=== PATIENT | female | born 1965 | race Hispanic/Latino ===

== ENCOUNTER 2025-04-30 12:47 | Emergency (ER) | payer OTHER, SELFPAY ==
--- NOTE | ~2025-04-30 | CT_ITS ---
History: Facial droop PROCEDURE: CT head without contrast. COMPARISON: None TECHNIQUE: Axial imaging of the head performed from the skull base to the vertex without IV contrast. Sagittal a nd coronal reformations obtained. DLP: 605 mGy-cm FINDINGS: The ventricles are normal in size, shape and position. There is no mass, mass effect or midline shift. There is no abnormal extra-axial fluid collection or intracranial hemorrhage. Visualized paranasal sinuses are clear. The mastoid air cells are well aerated. No acute displaced fractures within the overlying cranium. Impression: No acute intracranial hemorrhage or suspicious mass effect. Reviewed, dictated and finalized at location A. Impression: No acute intracranial hemorrhage or suspicious mass effect.
--- NOTE | ~2025-04-30 | XR_ITS ---
CHEST RADIOGRAPH CLINICAL HISTORY: Facial droop, left side . COMPARISON: None available TECHNIQUE: Single portable view of the chest. FINDINGS The cardiomediastinal silhouette is unremarkable. The lungs are clear. IMPRESSION: No focal infiltrate or effusion. Reviewed, dictated and finalized at location A.
[2025-04-30 12:54] VITALS: BP 152/107; PULSE 87; RESP 18; TEMP 37.1; O2SAT 97
[2025-04-30 13:05] VITALS: O2SAT 98
--- NOTE | 2025-04-30 13:16 | ECG_ITS ---
Test Date: 2025-04-30 13:39:24 Measurements Intervals Eleva Rate: 81 P: 43 FL: 168 QRS: 3 QRSD: 78 T: 49 QT: 358 QTc: 418 Interpretive Statements SINUS RHYTHM VOLTAGE CRITERIA FOR LVH NONSPECIFIC T-WAVE ABNORMALITY- ANTERIOR LEADS BASELINE ARTIFACT- I, II, AVR, AVL, AVF BORDERLINE ECG No previous ECG available for comparison Electronically Signed On 04-30-2025 13:45:56 CDT by Roberto Cooper D.O.
--- NOTE | 2025-04-30 13:22 | ED.NEUROSD ---
HPI - Neuro Symptoms/Deficit General Chief Complaint: Suspected CVA Stated Complaint: left facial drooping started last night Time Seen by Provider: 04/30/25 13:07 History of Present Illness HPI Narrative: 59-year-old female primarily [place]er-speaking requiring interpretive services. Patient presents to the emergency department with left-sided facial droop and difficulty closing her left eye. Patient states the symptoms started 4:00 p.m. yesterday. Previous to this she was not having any symptoms at all. Endorses some sensation loss in the left side of her face including the forehead, cheek and jaw area. Notices that she cannot smile very well and notices that she has some tearing in her left eye. No hearing loss but states that she gets some fullness sensation left ear. No facial trauma or injury. No rash or lesions. His a history of hypertension diabetes but no history of stroke. She was otherwise in her normal state of health. Denies any neck pain, facial pain or headache. No weakness or sensory deficits in the arms or legs. No difficulty ambulating. Related Data Allergies Allergy/AdvReac Type Severity Reaction Status Date / Time No Known Allergies Allergy Verified 04/30/25 13:01 Review of Systems Review of Systems: As reviewed above in HPI Exam Narrative: GENERAL: [Well-appearing, well-nourished, and in no acute distress.] HEAD: [Normocephalic, atraumatic.] EYES: [PERRLA and EOMI.] ENT: Nares clear, no rhinorrhea or epistaxis. Mucous membranes moist. NECK: Supple. CHEST: [Clear to auscultation. No respiratory distress.] HEART: [Regular rate and rhythm]. No murmur heard. [Normal peripheral pulses.] ABDOMEN: [Soft, nondistended], [nontender], [No rigidity or guarding] EXTREMITIES: Normal range of motion. [No edema.] SKIN: Warm, dry, no rash. NEURO: Left-sided facial asymmetry not sparing the forehead, inability to lift the left corner of her left mouth or raise the eyebrows or tarsal muscle in the left side, sensation decreased over the V1 through V3 distribution of the left face. No ataxia in the arms, no visual deficits, no hearing loss. No drift in the arms or legs. Symptoms consistent with Perkins's palsy PSYCH: [Normal mood and affect.] Course Vital Signs Vital signs: Vital Signs Temperature 37.1 C 04/30/25 12:54 Pulse Rate 87 04/30/25 12:54 Respiratory Rate 18 04/30/25 12:54 Blood Pressure 152/107 H 04/30/25 12:54 Pulse Oximetry 97 04/30/25 12:54 Oxygen Delivery Room Air 04/30/25 12:54 Temperature 37.1 C 04/30/25 12:54 Pulse Rate 87 04/30/25 12:54 Respiratory Rate 18 04/30/25 12:54 Blood Pressure 152/107 H 04/30/25 12:54 Pulse Oximetry 98 04/30/25 13:05 Oxygen Delivery Room Air 04/30/25 12:54 MDM - Neuro Symptoms/Deficit MDM Narrative Medical decision making narrative: 59-year-old female primarily [place]-speaking requiring interpretive services. Patient presents to the emergency department with left-sided facial droop and difficulty closing her left eye. Patient states the symptoms started 4:00 p.m. yesterday. Previous to this she was not having any symptoms at all. Endorses some sensation loss in the left side of her face including the forehead, cheek and jaw area. Notices that she cannot smile very well and notices that she has some tearing in her left eye. No hearing loss but states that she gets some fullness sensation left ear. No facial trauma or injury. No rash or lesions. His a history of hypertension diabetes but no history of stroke. She was otherwise in her normal state of health. Denies any neck pain, facial pain or headache. No weakness or sensory deficits in the arms or legs. No difficulty ambulating. Left-sided facial asymmetry not sparing the forehead, inability to lift the left corner of her left mouth or raise the eyebrows or tarsal muscle in the left side, sensation decreased over the V1 through V3 distribution of the left face. No ataxia in the arms, no visual deficits, no hearing loss. No drift in the arms or legs. Symptoms consistent with Perkins's palsy. Patient does have elevated risk factors for CVA including hypertension and diabetes. No vital anomalies aside from stable hypertension. Her neuro examination is consistent with Perkins's palsy rather than central pathology but given her elevated risk factors a workup was ordered including CBC, CMP, CT of the head, chest x-ray and EKG. She will be treated with prednisone and valacyclovir while workup is underway and discussed with her that if unremarkable she can be safely discharged with a plan for treatment of viral etiology causing Perkins's palsy. Workup was unremarkable. No leukocytosis or anemia. Normal platelet count. Coagulation panel is normal. Electrolytes are normal. Normal creatinine, glucose mildly elevated but she has known history of diabetes. Elevated LFTs without clinical significance. Will be discussed for outpatient follow-up. Negative troponin. CT of the head shows no intracranial hemorrhage or suspicious mass effect. X-ray shows no infiltrates or effusions. Patient clinically has Perkins's palsy be treated with a combination of valacyclovir and prednisone. Given topical eyedrops for lubrication and given instructions for follow-up. Medical Records Attestation: I reviewed the patient's medical records. Lab Data Attestation: I reviewed the patient's lab results. 04/30/25 13:42 04/30/25 13:42 Labs: Lab Results 04/30/25 04/30/25 Range/Units 13:01 13:42 WBC 9.1 (4.5-10.0) K/mm3 RBC 5.04 (4.2-5.4) M/mm3 Hgb 13.0 (12.0-15.0) g/dL Hct 41.9 (37.0-47.0) % MCV 83.1 (80-100) fl MCH 25.8 L (26-34) pg MCHC 31.0 L (32-36) g/dl RDW 13.2 (11.5-14.5) % Plt Count 239 (150-375) k/mm3 MPV 11.1 H (7.4-10.4) fl Immature Gran % (Auto) 0.2 (0-0.5) % Neut % (Auto) 59.7 (45.5-73.1) % Lymph % (Auto) 31.9 (18.3-44.2) % [place] % (Auto) 6.5 (2.6-8.5) % Eos % (Auto) 1.5 (0-4.4) % Baso % (Auto) 0.2 (0.2-1.2) % Lymph # (Auto) 2.90 (0.9-3.2) K/mm3 [place] # (Auto) 0.6 (0.1-0.6) K/mm3 Eos # (Auto) 0.1 (0-0.3) K/mm3 Baso # (Auto) 0.0 (0.0-0.1) K/mm3 Abs Immat Gran (auto) 0.02 (0.00-0.031) K/mm3 Absolute Neuts (auto) 5.4 (1.3-6.7) K/mm3 Absolute Nucleated RBC 0.000 (0.0-0.012) K/mm3 Nucleated RBC % 0.0 (0.0-0.2) % PT 14.6 (11.1-14.7) Seconds INR 1.1 APTT 27.8 (22.3-36.8) Seconds Sodium 138 (137-145) mmol/L Potassium 3.7 (3.4-5.0) mmol/L Chloride 101 (98-107) mmol/L Carbon Dioxide 28 (22-30) mmol/L Anion Gap 9 (4-12) mmol/L BUN 8 (7-17) mg/dL Creatinine 0.48 L (0.7-1.0) mg/dL Estim Creat Clear Calc 111 ml/min Estimated GFR > 60 (59 - ) Glucose 220 H (65-110) mg/dL POC Capillary Glucose 193 H (65-105) mg/dl Calcium 9.2 (8.4-10.2) mg/dL Total Bilirubin 0.7 (0.2-1.3) mg/dL AST 315 H (14-36) U/L ALT 276 H (6-35) U/L Alkaline Phosphatase 139 H (38-126) U/L Troponin I < 0.012 (0.000-0.034) ng/mL Total Protein 8.4 H (6.3-8.2) g/dL Albumin 4.4 (3.5-5.1) g/dL Imaging Data Attestation: I personally reviewed and interpreted this imaging study as follows: My impression: Impressions Head CT 04/30/25 13:38 Impression: No acute intracranial hemorrhage or suspicious mass effect. Chest X-Ray 04/30/25 13:39 IMPRESSION: No focal infiltrate or effusion. Discharge Plan Discharge Clinical Impression: Perkins's palsy Patient Disposition: Home Condition: Stable Instructions: Antibiotic Form, Perkins Palsy (ED) Additional Instructions: Your laboratory studies and CT scan show no acute abnormalities concerning for stroke. Your symptoms are consistent with a viral infection and inflammation of the nerves in the face that cause Perkins's palsy. We will treat this with a combination of anti-inflammatories including prednisone and viral medications called valacyclovir. Take medications until completed. Follow-up with your regular primary care provider. Your laboratory studies also show an elevated liver function panel which is not clinically insignificant or related but does need to be followed with your regular doctor for further evaluation if needed. Patient Language: [place] Prescriptions: New prednisone 20 mg tablet 60 mg PO DAILY 7 Days Qty: 21 0RF valacyclovir 1 gram tablet 1,000 mg PO Q8H 7 Days Qty: 21 0RF artificial tears(hypromellose) 0.3 % drops 1 drp LEFT EYE QID PRN (Reason: dry eyes) Qty: 30 0RF Follow-up/Referrals: Nyasia Draper DO [Physician] - 1 Week (PCP referral) PHYSICIAN,COPS [Primary Care Provider] - Time of Disposition: 15:51
[2025-04-30 13:53] LABS: Hematocrit 41.9 % (37.0-47.0); Hemoglobin 13.0 g/dL (12.0-15.0); Immature Granulocyte Percent A 0.2 % (0-0.5); Lymphocytes Absolute Auto 2.90 K/mm3 (0.9-3.2); Mean Corpuscular HGB Conc 31.0 g/dl (32-36); Mean Corpuscular Hemoglobin 25.8 pg (26-34); Mean Corpuscular Volume 83.1 fl (80-100); Nucleated Red Blood Cells Absolute Auto 0.000 K/mm3 (0.0-0.012); Nucleated Red Blood Cells Perc 0.0 % (0.0-0.2); Platelet Count Result 239 k/mm3 (150-375); Red Blood Count 5.04 M/mm3 (4.2-5.4); White Blood Count 9.1 K/mm3 (4.5-10.0)
[2025-04-30 14:02] LABS: Alanine Aminotransferase 276 U/L (6-35); Albumin Level 4.4 g/dL (3.5-5.1); Alkaline Phosphatase 139 U/L (38-126); Anion Gap 9 mmol/L (4-12); Aspartate Amino Transferase 315 U/L (14-36); Bilirubin,Total 0.7 mg/dL (0.2-1.3); Blood Urea Nitrogen 8 mg/dL (7-17); Calcium 9.2 mg/dL (8.4-10.2); Carbon Dioxide 28 mmol/L (22-30); Chloride 101 mmol/L (98-107); Estimated CRCL calculation 111 ml/min; Estimated Glomerular Filt Rate > 60; Glucose 220 mg/dL (65-110); Potassium 3.7 mmol/L (3.4-5.0); Sodium 138 mmol/L (137-145); Total Protein 8.4 g/dL (6.3-8.2)
[2025-04-30 14:14] LABS: Troponin I < 0.012 ng/mL (0.000-0.034)
[2025-04-30 14:16] LABS: INR 1.1; Prothrombin Time 14.6 Seconds (11.1-14.7)
[2025-04-30 14:17] LABS: Partial Thromboplastin Time 27.8 Seconds (22.3-36.8)
--- OUTSIDE RECORDS SUMMARY | 2025-04-30 14:47 | XMS_ITS | Clinical Summary ---
Author Organization [facility] Address [address] [place] [address] Care Team Providers Care Counter Person Name Role Phone Unknown, Provider Primary Care Provider Unavaila ble Source Comments [facility],non-owned Affiliates and Associated Physician Practices is amultiple site organization consisting of ambulatory clinics and hospital sitesin [place], [place], [place] and [place]. This disclosure is being madepursuant to the Care Everywhere program and may not contain all information available regarding this patient. Last updated 18.[facility] [employer] Allergies No known active allergies Medications * Be aware that medications may not be up to date on this document. Alwaysverify current medications with the patient. omeprazole (PRILOSEC) 20 MG capsuleIndicatio ns:GERD (gastroesophagea l reflux disease) Take 1 Cap by mouth daily before breakfast. 30 Cap 0 09/14/2010 Active Active Problems Problem Noted Date Diagnosed Date Screening for condition 05/17/2009 Overview (06/30/2015): Adult Abstraction Problem List Screening Dexa Scan (Bone Density): Result: Not avail in chart Date: Not avail in chart Colonoscopy: Result: Not avail in chart Date: Not avail in chart Pap Smear: Result: Not avail in chart Date: Not avail in chart Mammogram: Result: Not avail in chart Date: Not avail in chart Social History Tobacco Use Types Packs/Day Years Used Date Smoking Tobacco: Never Smokeless Tobacco: Never Alcohol Use Standard Drinks/Week Comments Yes 0 (1 standard drink = 0.6 oz pur e alcohol) Socially Comments No Sex and Gender Information Value Date Recorded Sex Assigned at Not on file Legal Sex Female 6:51 AM WINDOWS SYSTEM ADMIN Gender Identity Female 01/04/2020 10:50 AM CDT Sexual Orientation Not on file Last Filed Vital Signs Vital Sign Reading Time Taken Comments Blood Pressure 130/82 01/04/2020 10:53 AM CDT Pulse 79 01/04/2020 10:53 AM CDT Temperature 37.3 C (99.1 F) 01/04/2020 10:53 AM CDT Respiratory Rate 16 01/04/2020 10:53 AM CDT Oxygen Saturation 95% 01/04/2020 10:53 AM CDT Inhaled Oxygen Concentration - - Weight 93 kg (205 lb) 09/14/2010 3:54 PM WINDOWS SYSTEM ADMIN Height 157.5 cm (5' 2) 01/04/2020 10:53 AM CDT Body Mass Index - - Plan of Treatment Health Maintenance Due Date Last Done Comments COLOGUARD (AGES 45-75) - COL ON CA SCREENING 1965 COLON MONITORING 1965 COLONOSCOPY - COLON CA SCREENING 1965 CT COLONOGRAPHY - COLON CA SCREENING 1965 Colorectal Cancer Screening 1965 FIT - COLON CA SCREENING 1965 FLEX SIG - COLON CA SCREENING 1965 LIPID TESTING 1965 MAMMOGRAM 1965 HIV SCREENING 1980 HEPATITIS C SCREENING 11/08/1983 DTAP/TDAP/TD VACCINES (1 - Tdap) 1984 HEPATITIS B VACCINE (1 of 3 - 19+ 3-dose series) 1984 PNEUMOCOCCAL VACCINE 50+ (1 of 1 - PCV) 2015 ZOSTER VACCINE (1 of 2) 2015 COVID-19 VACCINE (1 - 2023-2 5 season) 2024 DEPRESSION SCREENING 09/30/2024 INFLUENZA VACCINE (#1) 2025 HIB VACCINE Aged Out No longer eligi ble based on patient's age to complete this topic HPV VACCINE Aged Out No longer eligi ble based on patient's age to complete this topic MENINGOCOCCAL (Group B) VACC INE SHARED DECISION-MAKING Aged Out No longer eligibl e based on patient's age to complete this topic MENINGOCOCCAL GROUPS A/C/Y/W VACCINE Aged Out No longer eligible b ased on patient's age to complete this topic Insurance [employer] Care Teams Counter Person Relationship Specialty Start Date End Date Unknown, Provider PCP - General 01/04/20
== END 2025-04-30 16:24 | disposition home or self-care (01) ==
PROVIDERS: Emergency Provider Student in an Organized Health Care Education/Training Program
DX: G51.0 Bell's palsy (principal); I10 Essential (primary) hypertension; E11.9 Type 2 diabetes mellitus without complications
CPT/HCPCS: 36415; 70450; 71045; 80053; 82948; 84484; 85025; 85610; 85730; 93005; 99284